=== PATIENT | male | born 1935 | race Two or more races ===

== ENCOUNTER 2019-08-11 22:51 | Inpatient (IN) | payer MEDICARE, OTHER ==
[~2019-08-11] VITALS: Ht 165.1 cm; Wt 52.6 kg
[2019-08-11] MEDS ORDERED: IV NORMAL SALINE 500 ML BAG IV ONE (23:00)
--- NOTE | 2019-08-11 23:00 | NUR ---
Called to ED. Rec'd pt while being bagged by paramedics and subsequently placed on Calvo settings AC 12, VT 500, PEEP +5 and FIO2-100%. Portex 7 is patent and secure. Pt will continue to be monitored. Pt is in no resp. distress at this time. Calvo alarm parameters have been checked and remain audible. Addendum: 08/11/19 at 2348 by MARKY PAGE RT FIO2 to be titrated to 40%
--- NOTE | 2019-08-11 23:04 | NUR ---
PT CAME IN BIB R90 VIA [facility] PT IS NONRESPONSIVE, AMBU BAG ON TRACHE W/ VENT SETTINGS PER EMT, REPORTS INCREASING LETHARGY AND UNRESPONSIVENESS X1DAY PT FULL CODE, +TRACHEOSTOMY INTACTT,+GTUBE INTACT(L MID ABD),+DRESSING ON L CHEST (DIALYSIS) NO VISUAL TRACKING,NOT RESPONSIVE TO PAIN NOR TOUCH, +PULSES ON WRIST, +CAROTID PULSE EQUAL RISE AND FALL OF CHEST 102F RECTAL, UNABLE TO OBTAIN URINE, UPON INSERTION OF FR 16 INDWELLING PATEL CATH, WHICH PRODUCED VERY THICK BROWN ASPIRATE UNDER 2ML MD AT BEDSIDE FOR HX AND PHYSICAL
[2019-08-11 23:05] LABS: BASOPHILS % (AUTO) 0.2 % (0.0-2.0); EOSINOPHILS # (AUTO) 0.2 K/uL (0.0-0.7); EOSINOPHILS % (AUTO) 1.6 % (0.0-7.0); HEMATOCRIT 33.8 % (36.7-47.1); HEMOGLOBIN 10.9 g/dL (12.5-16.3); LYMPHOCYTES # (AUTO) 2.9 K/uL (20.0-40.0); LYMPHOCYTES % (AUTO) 22.5 % (20.5-51.5); MEAN CORPUSCULAR HEMOGLOBIN 31.1 uug (23.8-33.4); MEAN CORPUSCULAR HGB CONC 32 g/dL (32.5-36.3); MEAN CORPUSCULAR VOLUME 96.2 fL (73.0-96.2); NEUTROPHILS # (AUTO) 8.6 K/uL (1.8-8.9); NEUTROPHILS % (AUTO) 67.7 % (38.5-71.5); PLATELET COUNT (AUTO) 133 K/uL (152-348); RED BLOOD CELL COUNT(AUTO) 3.51 MIL/uL (4.06-5.63); WHITE BLOOD COUNT (AUTO) 12.7 K/uL (3.6-10.2)
[2019-08-11] MEDS ORDERED: ACETAMINOPHEN 650 MG SUPP.RECT RC ONE ×2 (23:15→23:18)
[2019-08-11 23:27] LABS: CARBON DIOXIDE 22 mmol/L (21-32); CHLORIDE 102 mmol/L (98-107); CREATININE 3.5 mg/dL (0.6-1.3); GLUCOSE 187 mg/dL (74-106); UREA NITROGEN, BLOOD 64 mg/dL (7-18)
[2019-08-11] MEDS ORDERED: PIPERACILLIN/TAZOBACTAM/D5W 50 ML IV ONE (23:28)
[2019-08-11 23:29] LABS: POTASSIUM 2.4 mmol/L (3.5-5.1)
[2019-08-11] MEDS ORDERED: VANCOMYCIN IV 1,000 MG in IV DEXTROSE 5% 250 ML IV ONE (23:30)
[2019-08-11] MEDS ORDERED: POTASSIUM CHLORIDE 20 MEQ TAB.PRT.SR PO ONE (23:30)
[2019-08-11] MEDS ORDERED: PIPERACILLIN SODIUM/TAZOBACTAM 3.375 G in IV DEXTROSE 5% 50 ML IV ONE (23:30)
--- NOTE | 2019-08-11 23:30 | NUR ---
CRITICAL LAB: POTASSIUM AT 2.4 PER [facility](LAB) ERMD AWARE
[2019-08-11] MEDS ORDERED: POTASSIUM CHLORIDE 20 MEQ TAB.PRT.SR ONE (23:34)
[2019-08-11 23:39] LABS: ALANINE AMINOTRANSFERASE 44 U/L (16-63); ALKALINE PHOSPHATASE 423 U/L (50-136); ASPARTATE AMINOTRANSFERASE 19 U/L (15-37); BILIRUBIN,DIRECT 0.4 mg/dL (0.0-0.2); BILIRUBIN,TOTAL 0.8 mg/dL (0.2-1.0); TOTAL PROTEIN, SERUM 7.6 g/dL (6.4-8.2)
[2019-08-11] MEDS ORDERED: VANCOMYCIN IV 200 ML ONE (23:48)
[2019-08-11] MEDS ORDERED: ONDA4TAB10 GT (23:53)
[2019-08-11] MEDS ORDERED: SENN-168 GT (23:53)
[2019-08-11] MEDS ORDERED: ferrous sulfate GT (23:53)
[2019-08-11] MEDS ORDERED: FAMO20TA8 GT (23:53)
[2019-08-11] MEDS ORDERED: LACT1CAP57 GT (23:53)
[2019-08-11] MEDS ORDERED: AMLO5TAB9 GT (23:53)
[2019-08-11] MEDS ORDERED: PROT946L GT (23:53)
[2019-08-11] MEDS ORDERED: INSU100V11 SUBCUT (23:53)
[2019-08-11] MEDS ORDERED: ASCO250T5 GT (23:53)
[2019-08-11] MEDS ORDERED: LEVE500S9 GT (23:53)
[2019-08-11] MEDS ORDERED: ACET160S GT (23:53)
[2019-08-11] MEDS ORDERED: PROMETHAZINE CODEINE GT (23:53)
[2019-08-11] MEDS ORDERED: CARV25TA2 GT (23:53)
[2019-08-11] MEDS ORDERED: IPRA3AMP22 IH ×2 (23:53)
[2019-08-11] MEDS ORDERED: CHLO473M3 PO (23:53)
[2019-08-11] MEDS ORDERED: HEPA500034 SUBCUT (23:53)
[2019-08-11] MEDS ORDERED: VIT1TABL46 GT (23:53)
--- NOTE | 2019-08-11 23:58 | NUR ---
PT SCRATCHED RIGHT EAR PT ABLE TO OPEN EYES UPON COMMAND AND BLINK
[2019-08-12] VITALS (88 sets, daily range): BP systolic 67–135; BP diastolic 29–63
--- NOTE | 2019-08-12 00:05 | NUR ---
DR LORD ON THE PHONE W/ DR HARE DX ACUTE FEBRILE ILLNESS HYPOKALEMIA RENAL FAILURE [facility]ALTH[facility] ACQUIRED PNEUMONIA ICU BED 1
--- NOTE | 2019-08-12 00:12 | NUR ---
HAND OFF AND SBAR GIVEN TO MS. POLLARD PT WILL BE ADMITTED TO ICU BD 1
--- NOTE | 2019-08-12 00:14 | NUR ---
pt transported to ICU BED 1 ACC BY CASH CONTROL SPECIALIST ACC BY RT UNDER DR LORD DX: ACUTE FEBRILE ILLNES [facility] ACQUIRED PNEUMONIA RENAL FAILURE PT NAD, +G18 L AC INTACT INFUSING WELL TO COMPLETE ABX AT ICU +G16 TO R AC INTACT SALINE LOCK TEMP AT 101.5F
--- NOTE | 2019-08-12 00:40 | NUR ---
Admitted an 83 y.o male patient from ER via raquel DX: sepsis, PNA. To CCU1; obtunded, withdraws to pain, doesn't open eyes or track. Assessment done; see admission data for details. Addendum: 08/12/19 at 0431 by LATRICE PIZARRO RN Amended: Links added. Addendum: 08/12/19 at 0433 by LATRICE PIZAROR RN Amended: Links added. Addendum: 08/12/19 at 0500 by LATRICE PIZARRO RN Amended: Links added. Addendum: 08/12/19 at 0502 by LATRICE PIZARRO RN Amended: Links added. Addendum: 08/12/19 at 0502 by LATRICE PIZAROR RN Amended: Links added. Addendum: 08/12/19 at 0502 by LATRICE PIZARRO RN Amended: Links added. Addendum: 08/12/19 at 0503 by LATRICE PIZARRO RN Amended: Links added. Addendum: 08/12/19 at 0505 by LATRICE PIZARRO RN Amended: Links added. Addendum: 08/12/19 at 0508 by LATRICE PIZARRO RN Amended: Links added. Addendum: 08/12/19 at 0509 by LATRICE PIZARRO RN Amended: Links added. Addendum: 08/12/19 at 0509 by LATRICE PIZARRO RN Amended: Links added. Addendum: 08/12/19 at 0511 by LATRICE PIZARRO RN Amended: Links added.
--- NOTE | 2019-08-12 01:00 | NUR ---
Spoke to Dr. Rehana jones: patient's admission and BP. Orders received. Addendum: 08/12/19 at 0433 by LATRICE PIZARRO RN Amended: Links added. Addendum: 08/12/19 at 0500 by LATRICE PIZARRO RN Amended: Links added. Addendum: 08/12/19 at 0502 by LATRICE PIZARRO RN Amended: Links added. Addendum: 08/12/19 at 0502 by LATRICE PIZARRO RN Amended: Links added. Addendum: 08/12/19 at 0502 by LATRICE PIZARRO RN Amended: Links added. Addendum: 08/12/19 at 0503 by LATRICE PIZARRO RN Amended: Links added. Addendum: 08/12/19 at 0505 by LATRICE PIZARRO RN Amended: Links added. Addendum: 08/12/19 at 0508 by LATRICE PIZARRO RN Amended: Links added. Addendum: 08/12/19 at 0509 by LATRICE PIZARRO RN Amended: Links added. Addendum: 08/12/19 at 0509 by LATRICE PIZARRO RN Amended: Links added. Addendum: 08/12/19 at 0511 by LATRICE PIZARRO RN Amended: Links added.
[2019-08-12] MEDS ORDERED: IV NORMAL SALINE 500 ML IV ONE (01:15)
[2019-08-12] MEDS ORDERED: NOREPINEPHRINE BITARTRATE 4 MG/4 ML VIAL IV ONE (01:29)
--- NOTE | 2019-08-12 01:40 | NUR ---
ABJohnny drawn. Patient's son Destin in. Visiting hours and routine CCU care discussed; verbalized understanding. Addendum: 08/12/19 at 0500 by LATRICE PIZARRO RN Amended: Links added. Addendum: 08/12/19 at 0502 by LATRICE IPZARRO RN Amended: Links added. Addendum: 08/12/19 at 0502 by LATRICE PIZARRO RN Amended: Links added. Addendum: 08/12/19 at 0502 by LATRICE PIZARRO RN Amended: Links added. Addendum: 08/12/19 at 0503 by LATRICE PIZARRO RN Amended: Links added. Addendum: 08/12/19 at 0505 by LATRICE PIZARRO RN Amended: Links added. Addendum: 08/12/19 at 0508 by LATRICE PIZARRO RN Amended: Links added. Addendum: 08/12/19 at 0509 by LATRICE PIZARRO RN Amended: Links added. Addendum: 08/12/19 at 0509 by LATRICE PIZARRO RN Amended: Vidhya added. Addendum: 08/12/19 at 0511 by LATRICE PIZARRO RN Amended: Vidhya added.
[2019-08-12 01:42] LABS: ABG BASE EXCESS -6.9 mmol/L; ABG HCO3 18.5 mmol/L; ABG PCO2 36.7 mmHg (35.0-45.0); ABG PO2 169.8 mmHg (75.0-100.0); ABG SITE LEFT BRACHIAL; ABG TOTAL HEMOGLOBIN 9.7 G/dL (13.5-18.0); COHb 0.8 % (0.5-1.5); MetHb 0.2 % (0.0-1.5); O2Hb 98.3 % (94.0-97.0); VENT MODE VENT - A/C; VT, ABG 500 mL
[2019-08-12] MEDS: NOREPINEPHRINE BITARTRATE 8 MG in IV DEXTROSE 5% 500 ML IV PRN (01:50)
[2019-08-12] MEDS ORDERED: MAGNESIUM HYDROXIDE 30 ML LIQUID UDC PO PRN (02:00)
[2019-08-12] MEDS ORDERED: HYDROCODONE/APAP 5-325MG TABLET PO PRN (02:00)
[2019-08-12] MEDS ORDERED: ONDANSETRON 4 MG/2 ML VIAL IV PRN (02:00)
[2019-08-12] MEDS ORDERED: Z GUARD REMEDY PASTE 57 GM TUBE TOP PRN (02:00)
--- NOTE | 2019-08-12 02:00 | NUR ---
Results of ABGS called to Dr. Kimball. Informed of L heel/foot that is necrotic and patient's condition. Orders received. Addendum: 08/12/19 at 0502 by LATRICE PIZARRO RN Amended: Links added. Addendum: 08/12/19 at 0502 by LATRICE PIZARRO RN Amended: Links added. Addendum: 08/12/19 at 0502 by LATRICE PIZARRO RN Amended: Links added. Addendum: 08/12/19 at 0503 by LATRICE PIZARRO RN Amended: Links added. Addendum: 08/12/19 at 0505 by LATRICE PIZARRO RN Amended: Links added. Addendum: 08/12/19 at 0508 by LATRICE PIZARRO RN Amended: Links added. Addendum: 08/12/19 at 0509 by LATRICE PIZARRO RN Amended: Links added. Addendum: 08/12/19 at 0509 by LATRICE PIZARRO RN Amended: Links added. Addendum: 08/12/19 at 0511 by LATRICE PIZARRO RN Amended: Links added.
[2019-08-12] MEDS: POTASSIUM CHLORIDE 50 ML IV SCH ×4 (02:32→05:27)
[2019-08-12] MEDS ORDERED: PIPERACILLIN/TAZOBACTAM/D5W 50 ML ONE (05:37)
[2019-08-12] MEDS: PIPERACILLIN/TAZO 2.25 G in IV DEXTROSE 5% 50 ML IV SCH ×3 (05:46→21:12)
[2019-08-12] MEDS ORDERED: VANCOMYCIN IV 1,250 MG in IV DEXTROSE 5% 250 ML IV SCH (09:00)
--- NOTE | 2019-08-12 09:00 | NUR ---
Pt has a trache Portex 7, connected to ventilator with a setting of AC 12, FIO2-40%, VT-500, Peep-5, satting 98-100%. Lungs has scattered rhonvhis, suction moderate amount of whitish secretions.
[2019-08-12 09:02] LABS: BASOPHILS % (AUTO) 0.3 % (0.0-2.0); EOSINOPHILS # (AUTO) 0.3 K/uL (0.0-0.7); EOSINOPHILS % (AUTO) 1.9 % (0.0-7.0); HEMATOCRIT 31.9 % (36.7-47.1); HEMOGLOBIN 10.2 g/dL (12.5-16.3); LYMPHOCYTES % (AUTO) 11.8 % (20.5-51.5); MEAN CORPUSCULAR HEMOGLOBIN 31.1 uug (23.8-33.4); MEAN CORPUSCULAR HGB CONC 32 g/dL (32.5-36.3); MEAN CORPUSCULAR VOLUME 96.9 fL (73.0-96.2); MONOCYTES % (AUTO) 5.9 % (0.0-11.0); NEUTROPHILS # (AUTO) 13.5 K/uL (1.8-8.9); NEUTROPHILS % (AUTO) 80.1 % (38.5-71.5); PLATELET COUNT (AUTO) 139 K/uL (152-348); RED BLOOD CELL COUNT(AUTO) 3.29 MIL/uL (4.06-5.63); WHITE BLOOD COUNT (AUTO) 16.8 K/uL (3.6-10.2)
[2019-08-12 09:07] LABS: CARBON DIOXIDE 19 mmol/L (21-32); CHLORIDE 102 mmol/L (98-107); CREATININE 3.6 mg/dL (0.6-1.3); GLUCOSE 230 mg/dL (74-106); MAGNESIUM 2.3 mg/dL (1.8-2.4); PHOSPHOROUS 2.8 mg/dL (2.5-4.9); UREA NITROGEN, BLOOD 69 mg/dL (7-18)
[2019-08-12] MEDS ORDERED: DEXTROSE 50% 50 ML DISP.SYRIN IV PRN (09:15)
--- NOTE | 2019-08-12 09:52 | NUR ---
Clinical Pharmacy Note: Vancomycin Dosing per Pharmacy Subjective: Vancomycin IV to start on this 83 yo male on HD for PNA (HCAP) Objective: BUN 69/Scr 3.6 WBC16.8 Temperature 98.6 ht 165 cm wt 51 kg Assessment/Plan: Patient received vancomycin 1000mg IVPB x1 on 08/11 at 2300.No HD harman been scheduled for today, therefore, no dose is due today, as per vanco dosing for HD patient protocol. Plan to order vancomycin random level before next HD (not yet ordered). Will continue to dose per pre-HD vancomycin level. Will follow.
[2019-08-12] MEDS: PANTOPRAZOLE SODIUM 40 MG VIAL IV SCH (09:55)
[2019-08-12] MEDS: HEPARIN SODIUM,PORCINE 5,000 UNITS/ML VIAL SQ SCH ×2 (09:56→20:41)
[2019-08-12] MEDS: Z GUARD REMEDY PASTE 57 GM TUBE TOP SCH ×2 (09:58→20:40)
--- NOTE | 2019-08-12 10:00 | NUR ---
Seen and examined by Dr Berger with new orders. Seen by Dr Lacey with new orders. Pt is a turnbase. Levophed infusing at 2mctg/min for low BP.
--- NOTE | 2019-08-12 10:30 | NUR ---
Venous doppler done at the bedside, poor result. Compression sock not recommended for now.
--- NOTE | 2019-08-12 10:45 | NUR ---
Seen and examined by Carina Gentile Pt is possibly dialyse tomorrow 08/13.
--- NOTE | 2019-08-12 11:20 | NUR ---
WOUND CARE CONSULT: PT FOLLOWED BY PLASTIC SURGERY AND PODIATRY TEAMS FOR WOUNDS. DEFER TO SURGICAL TEAMS FOR WOUND TREATMENT PLAN. DISCUSSED SKIN PROTECTION WITH NURSING STAFF. FIRST STEP LOW AIRLOSS MATTRESS ON ORDER. WILL SEE PRN.
[2019-08-12] MEDS: PROTEIN SUPPLEMENT (PROSTAT) 30 ML LIQUID GT SCH ×2 (12:00→17:57)
[2019-08-12] MEDS: INSULIN REGULAR, HUMAN 300 UNIT/3 ML VIAL SQ PRN ×2 (12:25→18:06)
[2019-08-12] MEDS: BLOOD SUGAR DIAGNOSTIC 1 EACH STRIP VI SCH ×2 (12:27→17:58)
[2019-08-12] MEDS ORDERED: Medication Not On Formulary EA (Protein Supplement (Promod) 30 ML) GT SCH (13:00)
--- NOTE | 2019-08-12 15:00 | NUR ---
Pt is seen by senior telecommunications technician and surgery, no orders.
[2019-08-12] MEDS: LEVETIRACETAM 500 MG/5 ML LIQUID UDC GT SCH ×2 (15:32→21:07)
--- NOTE | 2019-08-12 16:00 | NUR ---
Sputum collected and sent to lab for culture as ordered.
[2019-08-12] MEDS ORDERED: Medication Not On Formulary EA (Levetiracetam 500 MG) GT SCH (17:00)
--- NOTE | 2019-08-12 17:00 | NUR ---
Dressing done on both feet as ordered. Elevated both feet on pillows.
--- NOTE | 2019-08-12 17:45 | NUR ---
Recieved pt lying in bed, Hob up 35degrees. Obtunded, resdponsive only to deep stimuli. All extremities are flaccid. Temp 99.1F
[2019-08-12] MEDS: CHLORHEXIDINE GLUCONATE 15 ML MOUTHWASH MM SCH (17:56)
[2019-08-12] MEDS: CULTURELLE CAPSULE GT SCH (17:56)
[2019-08-12] MEDS ORDERED: LEVETIRACETAM 500 MG/5 ML LIQUID UDC GT SCH (21:00)
[2019-08-12] MEDS ORDERED: LEVETIRACETAM 250 MG TABLET ONE (21:01)
[2019-08-12] MEDS ORDERED: DILTIAZEM HCL IV 125 MG in IV NORMAL SALINE 100 ML IV PRN (23:45)
[2019-08-13] VITALS (80 sets, daily range): BP systolic 74–139; BP diastolic 37–64
[2019-08-13] MEDS: BLOOD SUGAR DIAGNOSTIC 1 EACH STRIP VI SCH ×4 (00:39→18:21)
[2019-08-13] MEDS: INSULIN REGULAR, HUMAN 300 UNIT/3 ML VIAL SQ PRN ×3 (00:41→18:24)
[2019-08-13 03:15] LABS: HEPATITIS B SURFACE AB Non Reactive (.); HEPATITIS B SURFACE AG Negative (Negative)
[2019-08-13 05:11] LABS: BASOPHILS % (AUTO) 0.3 % (0.0-2.0); EOSINOPHILS # (AUTO) 0.7 K/uL (0.0-0.7); EOSINOPHILS % (AUTO) 4.9 % (0.0-7.0); HEMATOCRIT 32.6 % (36.7-47.1); HEMOGLOBIN 10.5 g/dL (12.5-16.3); LYMPHOCYTES # (AUTO) 1.7 K/uL (20.0-40.0); LYMPHOCYTES % (AUTO) 12.1 % (20.5-51.5); MEAN CORPUSCULAR HEMOGLOBIN 30.5 uug (23.8-33.4); MEAN CORPUSCULAR HGB CONC 32 g/dL (32.5-36.3); MEAN CORPUSCULAR VOLUME 95.1 fL (73.0-96.2); MONOCYTES # (AUTO) 0.7 K/uL (2.0-10.0); NEUTROPHILS # (AUTO) 10.6 K/uL (1.8-8.9); NEUTROPHILS % (AUTO) 77.7 % (38.5-71.5); PLATELET COUNT (AUTO) 167 K/uL (152-348); RED BLOOD CELL COUNT(AUTO) 3.43 MIL/uL (4.06-5.63); WHITE BLOOD COUNT (AUTO) 13.7 K/uL (3.6-10.2)
[2019-08-13 05:28] LABS: CARBON DIOXIDE 19 mmol/L (21-32); CHLORIDE 103 mmol/L (98-107); CHOLESTEROL 66 mg/dL (<200); CREATININE 4.4 mg/dL (0.6-1.3); GLUCOSE 172 mg/dL (74-106); HDL CHOLESTEROL 19 mg/dL (40-60); MAGNESIUM 2.2 mg/dL (1.8-2.4); PHOSPHOROUS 3.9 mg/dL (2.5-4.9); TRIGLYCERIDES 114 MG/DL (30-150)
[2019-08-13 05:34] LABS: UREA NITROGEN, BLOOD 83 mg/dL (7-18)
[2019-08-13] MEDS: PIPERACILLIN/TAZO 2.25 G in IV DEXTROSE 5% 50 ML IV SCH ×2 (05:55→15:52)
[2019-08-13] MEDS: NOREPINEPHRINE BITARTRATE 8 MG in IV DEXTROSE 5% 500 ML IV PRN ×2 (07:11→15:51)
[2019-08-13 08:18] LABS: ABG BASE EXCESS -10.3 mmol/L; ABG HCO3 15.5 mmol/L; ABG PCO2 34.6 mmHg (35.0-45.0); ABG PO2 438.1 mmHg (75.0-100.0); ABG SITE LEFT RADIAL; ABG TOTAL HEMOGLOBIN 14.3 G/dL (13.5-18.0); COHb 1.6 % (0.5-1.5); MetHb 0.1 % (0.0-1.5); O2Hb 98.3 % (94.0-97.0); VENT MODE VENT - A/C; VT, ABG 500 mL
[2019-08-13] MEDS ORDERED: FAMOTIDINE 20 MG TABLET GT SCH (09:00)
[2019-08-13] MEDS ORDERED: Medication Not On Formulary EA (Vit B Cmplx 3/Fa/Vit C/Biotin (Rena-Vite Rx Tablet) 1 EA GT SCH (09:00)
[2019-08-13] MEDS: CULTURELLE CAPSULE GT SCH ×2 (10:26→17:00)
[2019-08-13] MEDS: FERROUS SULFATE 300 MG/5 ML LIQUID UDC GT SCH (10:27)
[2019-08-13] MEDS: PANTOPRAZOLE SODIUM 40 MG VIAL IV SCH (10:27)
[2019-08-13] MEDS: ASCORBIC ACID 250 MG TABLET GT SCH (10:27)
[2019-08-13] MEDS: CHLORHEXIDINE GLUCONATE 15 ML MOUTHWASH MM SCH ×2 (10:27→18:20)
[2019-08-13] MEDS: FOLIC ACID/VITAMIN B COMP W-C TABLET GT SCH (10:27)
[2019-08-13] MEDS: PROTEIN SUPPLEMENT (PROSTAT) 30 ML LIQUID GT SCH ×3 (10:30→17:00)
[2019-08-13] MEDS: Z GUARD REMEDY PASTE 57 GM TUBE TOP SCH ×2 (10:30→20:49)
[2019-08-13] MEDS: LEVETIRACETAM 500 MG/5 ML LIQUID UDC GT SCH ×2 (10:37→20:48)
[2019-08-13] MEDS: HEPARIN SODIUM,PORCINE 5,000 UNITS/ML VIAL SQ SCH ×2 (10:42→20:50)
--- NOTE | 2019-08-13 12:00 | NUR ---
Pt family at bedside,updated on plan of care.
[2019-08-13] MEDS ORDERED: VANCOMYCIN IV 1,000 MG in IV DEXTROSE 5% 250 ML IV ONE ×2 (12:15→16:45)
--- NOTE | 2019-08-13 12:47 | NUR ---
Clinical Pharmacy Note: Vancomycin Dosing per Pharmacy Subjective: Vancomycin IV to continue on this 83 yo male on HD for PNA (HCAP) Objective: BUN 83/Scr 4.4 WBC13.7 Temperature 99.8 ht 165 cm wt 51 kg Pre-HD level today with am labs: 11.6 Assessment/Plan: Patient received vancomycin 1000mg IVPB x1 on 08/11 at 2300.HD scheduled for today. Per pre-HD level, will dose another 1gm vanco today after dialysis. RN to call Rx when dialysis occurs so dose can be given afterwards. Brendan continue dosing per HD protocol. Will follow
--- NOTE | 2019-08-13 17:00 | NUR ---
Pt was seen by HERMANN Wolff.Updated on pt positive for MRSA in nares,john.Pt was placed on contact isolation.
[2019-08-13] MEDS ORDERED: MEROPENEM 500 MG in IV NORMAL SALINE 50 ML IV SCH (17:45)
--- NOTE | 2019-08-13 17:55 | NUR ---
RECEIVED PATIENT TRACHED ON A SAHNI VENT. PATIENT IS ON THE SETTINGS THAT ARE CHARTED ON THE MECHANICAL VENT NOTES. AMBU BAG IS BY BEDSIDE. VENT ALARMS ARE ON AND AUDIBLE. VENT IS PLUGGED IN THE RED OUTLET. NO SOB NOTED AT THIS TIME.
[2019-08-13] MEDS ORDERED: MEROPENEM 0.5 G in IV NORMAL SALINE 50 ML IV SCH (18:45)
[2019-08-13] MEDS: MEROPENEM 0.5 G in IV NORMAL SALINE 50 ML IV SCH (18:50)
[2019-08-13] MEDS: METRONIDAZOLE 500 MG/NS 100ML 500 MG in PREMIXED 1 EACH IV SCH (21:05)
[2019-08-14] VITALS (24 sets, daily range): BP systolic 91–165; BP diastolic 41–71
[2019-08-14] MEDS: BLOOD SUGAR DIAGNOSTIC 1 EACH STRIP VI SCH ×4 (00:07→17:15)
[2019-08-14] MEDS: INSULIN REGULAR, HUMAN 300 UNIT/3 ML VIAL SQ PRN ×3 (00:10→17:16)
--- NOTE | 2019-08-14 00:50 | NUR ---
PT ON CONT VLEA VENT WITH PORTEX # [address] AND SECURED, WITH SAME CURRENT VENT SETTINGS, A/C 14, VT 500ML, 35%, PEEP5, PT DOES ASSIST AT TIMES, CHECK CUFF, CHANGE HME, TRACH CARE DONE, SUCTIONED LIGHT PALE YELL TINGE SECRETIONS, PT SEMI AWAKE, NO VENT CHANGES MADE, ALL VENT Alarms good, pt stable, ambu bag at bedside. Kaylynn OWUSUP Addendum: 08/14/19 at 0053 by MOIRA JOYNER RT Amended: Links added.
[2019-08-14 05:23] LABS: CARBON DIOXIDE 26 mmol/L (21-32); CHLORIDE 103 mmol/L (98-107); CREATININE 3.3 mg/dL (0.6-1.3); GLUCOSE 115 mg/dL (74-106); MAGNESIUM 1.9 mg/dL (1.8-2.4); PHOSPHOROUS 2.9 mg/dL (2.5-4.9); POTASSIUM 3.1 mmol/L (3.5-5.1); UREA NITROGEN, BLOOD 50 mg/dL (7-18)
[2019-08-14 05:26] LABS: BASOPHILS % (AUTO) 0.2 % (0.0-2.0); EOSINOPHILS # (AUTO) 0.6 K/uL (0.0-0.7); EOSINOPHILS % (AUTO) 5.2 % (0.0-7.0); HEMATOCRIT 31.9 % (36.7-47.1); HEMOGLOBIN 10.7 g/dL (12.5-16.3); LYMPHOCYTES # (AUTO) 0.8 K/uL (20.0-40.0); LYMPHOCYTES % (AUTO) 6.7 % (20.5-51.5); MEAN CORPUSCULAR HEMOGLOBIN 31.3 uug (23.8-33.4); MEAN CORPUSCULAR HGB CONC 34 g/dL (32.5-36.3); MEAN CORPUSCULAR VOLUME 93.1 fL (73.0-96.2); MONOCYTES # (AUTO) 0.6 K/uL (2.0-10.0); MONOCYTES % (AUTO) 5.4 % (0.0-11.0); NEUTROPHILS # (AUTO) 9.5 K/uL (1.8-8.9); NEUTROPHILS % (AUTO) 82.5 % (38.5-71.5); RED BLOOD CELL COUNT(AUTO) 3.42 MIL/uL (4.06-5.63); WHITE BLOOD COUNT (AUTO) 11.5 K/uL (3.6-10.2)
[2019-08-14 05:35] LABS: PLATELET COUNT (AUTO) 160 K/uL (152-348)
[2019-08-14] MEDS: METRONIDAZOLE 500 MG/NS 100ML 500 MG in PREMIXED 1 EACH IV SCH ×3 (06:01→22:03)
[2019-08-14] MEDS: PROTEIN SUPPLEMENT (PROSTAT) 30 ML LIQUID GT SCH ×3 (08:07→16:58)
[2019-08-14] MEDS: CULTURELLE CAPSULE GT SCH ×2 (08:07→17:00)
[2019-08-14] MEDS: HEPARIN SODIUM,PORCINE 5,000 UNITS/ML VIAL SQ SCH ×2 (08:08→20:20)
[2019-08-14] MEDS: FERROUS SULFATE 300 MG/5 ML LIQUID UDC GT SCH (08:08)
[2019-08-14] MEDS: ASCORBIC ACID 250 MG TABLET GT SCH (08:09)
[2019-08-14] MEDS: PANTOPRAZOLE SODIUM 40 MG VIAL IV SCH (08:09)
[2019-08-14] MEDS: Z GUARD REMEDY PASTE 57 GM TUBE TOP SCH ×2 (08:09→20:16)
[2019-08-14] MEDS: CHLORHEXIDINE GLUCONATE 15 ML MOUTHWASH MM SCH ×2 (08:09→16:58)
[2019-08-14] MEDS: LEVETIRACETAM 500 MG/5 ML LIQUID UDC GT SCH ×2 (08:10→20:16)
[2019-08-14] MEDS: FOLIC ACID/VITAMIN B COMP W-C TABLET GT SCH (08:10)
[2019-08-14 08:35] LABS: ABG BASE EXCESS -3.3 mmol/L; ABG HCO3 20.6 mmol/L; ABG PCO2 32.8 mmHg (35.0-45.0); ABG PH 7.416 (7.350-7.450); ABG PO2 150.7 mmHg (75.0-100.0); ABG SITE LEFT RADIAL; ABG TOTAL HEMOGLOBIN 10.6 G/dL (13.5-18.0); MetHb 0.2 % (0.0-1.5); O2Hb 98.1 % (94.0-97.0); VENT MODE VENT - A/C; VT, ABG 500 mL
--- NOTE | 2019-08-14 08:40 | NUR ---
Pt.was seen by DO: Jane Lacey, updated with pt.condition and NPO status.
--- NOTE | 2019-08-14 09:10 | NUR ---
Pt.was seen by with new orders.
[2019-08-14] MEDS ORDERED: POTASSIUM CHLORIDE 10 MEQ TAB.PRT.SR PO ONE (09:30)
[2019-08-14] MEDS: MUPIROCIN 2% OINT 22 GM TUBE NS SCH ×2 (09:38→20:17)
--- NOTE | 2019-08-14 09:40 | NUR ---
Pt.was seen by
[2019-08-14] MEDS ORDERED: POTASSIUM CHLORIDE 20 MEQ POWDER PACKET PO ONE (09:45)
--- NOTE | 2019-08-14 10:31 | NUR ---
F/U WITH MED RESPONSE FOR BOAT CLEANING SUPERVISOR TIME,WAS NOT ARRANGE,PT. WAS SCHEDULED FOR BOAT CLEANING SUPERVISOR AT 1130 BY ACLS TRANSP. Addendum: 08/14/19 at 1033 by TAMRA MORALES RN #[id number]
--- NOTE | 2019-08-14 10:36 | NUR ---
Family at bedside,updated with pt.condition and plan of care.
--- NOTE | 2019-08-14 10:37 | NUR ---
Clinical Pharmacy Note: Vancomycin Dosing per Pharmacy Subjective: Vancomycin IV to continue on this 83 yo male on HD for PNA (HCAP) Objective: BUN 50/Scr 3.3 WBC 11.5 Temperature 97.8 ht 165 cm wt 51 kg Assessment/Plan: Patient received vancomycin 1000mg IVPB x1 on 08/13 post-dialysis. No HD scheduled for today therefore no dose will be given. Will continue to follow HD schedule and dose per pre-HD levels on HD days per protocol. Will follow
--- NOTE | 2019-08-14 11:40 | NUR ---
Pt.was seen by SURY SANCHEZ MD.
[2019-08-14] MEDS: NEPRO 1000 ML GT PRN (12:32)
--- NOTE | 2019-08-14 14:37 | NUR ---
RECEIVED STABLE ON CURRENT VENT SETTINGS. ORAL CARE GIVEN. 8AM ABG DONE WITH RESULT GIVEN TO DOLLY Rowland RN. TITRATED FIO2 DOWN TO 30 %. NO NEW ORDER RECEIVED FROM DR. LITTLEJOHN.
[2019-08-14] MEDS: VANCOMYCIN FOR PO/GT/NG USE GT SCH (17:00)
[2019-08-14] MEDS: MEROPENEM 0.5 G in IV NORMAL SALINE 50 ML IV SCH (17:18)
--- NOTE | 2019-08-14 18:51 | NUR ---
No changes in pt.condition, no s/s of distress.
--- NOTE | 2019-08-14 19:30 | NUR ---
Report received. Patient obtunded, with facial grimaces and withdrawal to pain, but doesn't open eyes. With trache to vent settings: VW=475 ml, FIO2=30%, PEEP=5, AC=12. Sat above 96%. On contact isolation for MRSA nares and stool C diff. GT feedings at 40 ml/H; tolerated. Assessment completed. Cleaned for small liquid brown BM. Turned and repositioned. HOB elevated at all times. Addendum: 08/14/19 at 2112 by LATRICE PIZARRO RN Amended: Links added. Addendum: 08/15/19 at 0105 by LATRICE PIZARRO RN vent settings: AC=14
[2019-08-15] VITALS (31 sets, daily range): BP systolic 93–185; BP diastolic 42–82
[2019-08-15] MEDS: BLOOD SUGAR DIAGNOSTIC 1 EACH STRIP VI SCH ×5 (00:16→23:52)
[2019-08-15] MEDS: VANCOMYCIN FOR PO/GT/NG USE GT SCH ×5 (00:16→23:52)
[2019-08-15] MEDS: INSULIN REGULAR, HUMAN 300 UNIT/3 ML VIAL SQ PRN ×5 (00:18→23:53)
--- NOTE | 2019-08-15 00:30 | NUR ---
Cleaned for another liquid brown BM. Skin care provided. Addendum: 08/15/19 at 0107 by LATRICE PIZARRO RN Amended: Links added. Addendum: 08/15/19 at 106 by LATRICE PIZARRO RN Amended: Links added. Addendum: 08/15/19 at 010 by LATRICE PIZARRO RN Amended: Links added. Addendum: 08/15/19 at 0108 by LATRICE PIZARRO RN Amended: Links added. Addendum: 08/15/19 at 0108 by LATRICE PIZARRO RN Amended: Links added. Addendum: 08/15/19 at 0108 by LATRICE PIZARRO RN Amended: Links added. Addendum: 08/15/19 at 0108 by LATRICE PIZARRO RN Amended: Links added. Addendum: 08/15/19 at 0108 by LATRICE PIZARRO RN Amended: Links added. Addendum: 08/15/19 at 0108 by LATRICE PIZARRO RN Amended: Links added. Addendum: 08/15/19 at 0109 by LATRICE PIZARRO RN Amended: Links added. Addendum: 08/15/19 at 0109 by LATRICE PIZARRO RN Amended: Links added.
--- NOTE | 2019-08-15 03:12 | NUR ---
PT ON CONT SAHNI VENT WITH PORTEX [address] AND SECURED, FIO2 @ 305, PT DOES ASSIST AT TIMES, GOOD COUGH EFFORT, SUCTIONED LIGHT PALE YELL TINGE SECRETIONS, NO VENT CHANGES MADE, TRACH CAREDONE, ALL VENT ALARMS GOOD, AMBU BAG AST BEDSIDE, CHANGE HMEAkin JOYNER COKE STILL CLEANER Addendum: 08/15/19 at 0314 by MOIRA JOYNER RT Amended: Links added.
[2019-08-15 05:27] LABS: BASOPHILS % (AUTO) 0.2 % (0.0-2.0); EOSINOPHILS # (AUTO) 0.5 K/uL (0.0-0.7); EOSINOPHILS % (AUTO) 4.2 % (0.0-7.0); HEMATOCRIT 32.2 % (36.7-47.1); HEMOGLOBIN 10.4 g/dL (12.5-16.3); LYMPHOCYTES # (AUTO) 1.5 K/uL (20.0-40.0); LYMPHOCYTES % (AUTO) 13.1 % (20.5-51.5); MEAN CORPUSCULAR HEMOGLOBIN 30.4 uug (23.8-33.4); MEAN CORPUSCULAR HGB CONC 32 g/dL (32.5-36.3); MEAN CORPUSCULAR VOLUME 94.1 fL (73.0-96.2); MONOCYTES # (AUTO) 0.7 K/uL (2.0-10.0); MONOCYTES % (AUTO) 5.7 % (0.0-11.0); NEUTROPHILS # (AUTO) 8.9 K/uL (1.8-8.9); NEUTROPHILS % (AUTO) 76.8 % (38.5-71.5); PLATELET COUNT (AUTO) 184 K/uL (152-348); RED BLOOD CELL COUNT(AUTO) 3.42 MIL/uL (4.06-5.63); WHITE BLOOD COUNT (AUTO) 11.6 K/uL (3.6-10.2)
[2019-08-15 05:36] LABS: CARBON DIOXIDE 24 mmol/L (21-32); CHLORIDE 104 mmol/L (98-107); GLUCOSE 245 mg/dL (74-106); MAGNESIUM 2.2 mg/dL (1.8-2.4); PHOSPHOROUS 2.8 mg/dL (2.5-4.9); UREA NITROGEN, BLOOD 71 mg/dL (7-18)
[2019-08-15 05:56] LABS: POTASSIUM 2.8 mmol/L (3.5-5.1)
--- NOTE | 2019-08-15 06:00 | NUR ---
Am care done. Patient opens eyes not tracking but appears more awake, moving arms purposefully. BPs 180's.
[2019-08-15] MEDS: METRONIDAZOLE 500 MG/NS 100ML 500 MG in PREMIXED 1 EACH IV SCH ×3 (06:03→22:04)
[2019-08-15] MEDS: IV NORMAL SALINE 250 ML IV PRN (06:07)
--- NOTE | 2019-08-15 06:40 | NUR ---
Spoke to Dr. Martinez re: low serum K and BPs in the 180's. Order received. As per MD BP will go down with dialysis.
[2019-08-15] MEDS ORDERED: POTASSIUM CHLORIDE 20 MEQ POWDER PACKET GT ONE (07:00)
[2019-08-15] MEDS ORDERED: MEROPENEM 0.5 G in IV NORMAL SALINE 50 ML IV PRN (07:19)
[2019-08-15] MEDS: PROTEIN SUPPLEMENT (PROSTAT) 30 ML LIQUID GT SCH ×3 (07:52→16:06)
[2019-08-15] MEDS: FERROUS SULFATE 300 MG/5 ML LIQUID UDC GT SCH (08:00)
[2019-08-15] MEDS: PANTOPRAZOLE SODIUM 40 MG VIAL IV SCH (08:00)
[2019-08-15] MEDS: CULTURELLE CAPSULE GT SCH ×2 (08:00→16:06)
[2019-08-15] MEDS: FOLIC ACID/VITAMIN B COMP W-C TABLET GT SCH (08:00)
[2019-08-15] MEDS: CHLORHEXIDINE GLUCONATE 15 ML MOUTHWASH MM SCH ×2 (08:03→16:06)
[2019-08-15] MEDS: LEVETIRACETAM 500 MG/5 ML LIQUID UDC GT SCH ×2 (08:03→20:31)
[2019-08-15] MEDS: ASCORBIC ACID 250 MG TABLET GT SCH (08:03)
[2019-08-15] MEDS: Z GUARD REMEDY PASTE 57 GM TUBE TOP SCH ×2 (08:06→20:31)
[2019-08-15] MEDS: MUPIROCIN 2% OINT 22 GM TUBE NS SCH ×2 (08:08→20:33)
[2019-08-15] MEDS: HEPARIN SODIUM,PORCINE 5,000 UNITS/ML VIAL SQ SCH ×2 (08:09→21:09)
--- NOTE | 2019-08-15 08:50 | NUR ---
Attending physician, Dr. Matty Lara in the unit to see and examine patient, full report given orders to continue with care plan received.
--- NOTE | 2019-08-15 08:51 | NUR ---
Hemodialysis in progress.
--- NOTE | 2019-08-15 09:30 | NUR ---
pulmonary services, Dr. Berger in the unit to see and examine patient, full report given Orders to continue with care plan received.
--- NOTE | 2019-08-15 10:02 | NUR ---
Clinical Pharmacy Note: Vancomycin Dosing per Pharmacy Subjective: Vancomycin IV to continue on this 83 yo male on HD for PNA (HCAP) Objective: BUN 71/Scr 4 WBC 11.5 Temperature 98.2 Vanco pre-HD level on 08/15: 19.5 ht 165 cm wt 51 kg Assessment/Plan: HD has been scheduled for today. Since pre-HD is between 15-20 mcg/ml, will give vanco 500mg IVPB x1 today post HD as per protocol. Will continue to follow HD schedule and dose per pre-HD levels on HD days per protocol. Will follow
[2019-08-15] MEDS: NOREPINEPHRINE BITARTRATE 8 MG in IV DEXTROSE 5% 500 ML IV PRN (10:24)
[2019-08-15] MEDS ORDERED: VANCOMYCIN IV 500 MG in IV DEXTROSE 5% 100 ML IV ONE (15:00)
--- NOTE | 2019-08-15 15:26 | NUR ---
As ordered by attending Dr. Matty Lara orders to consult with Library Serials Assistant. And at this time a call to Dr. Afshin Vazquez and spoke with him brief report given and informed of consultation. As stated "I'll see the patient thanks you for the consultation"
[2019-08-15] MEDS: MEROPENEM 0.5 G in IV NORMAL SALINE 50 ML IV SCH (17:51)
[2019-08-15] MEDS: NEPRO 1000 ML GT PRN (18:22)
--- NOTE | 2019-08-15 19:30 | NUR ---
Report received. Patient on contact isolation for stool c. diff and MRSA nares. With trache to vent on same settings: AC=14, FIO2=30%, WO=603ny and PEEP=5. Sat above 96%. Opens eyes and grimaces to pain, no tracking. Assessment completed. Addendum: 08/15/19 at 2215 by LATRICE PIZARRO RN Amended: Links added. Addendum: 08/15/19 at 2229 by LATRICE PIZARRO RN Amended: Links added. Addendum: 08/15/19 at 2229 by LATRICE PIZARRO RN Amended: Links added. Addendum: 08/15/19 at 2229 by LATRICE PIZARRO RN Amended: Links added. Addendum: 08/15/19 at 2230 by LATRICE PIZARRO RN Amended: Links added. Addendum: 08/15/19 at 0 by LATRICE PIZARRO RN Amended: Links added. Addendum: 08/15/19 at 2229 by LATRICE PIZARRO RN Amended: Links added. Addendum: 08/15/19 at 2230 by LATRICE PIZARRO RN Amended: Links added. Addendum: 08/15/19 at 2230 by LATRICE PIZARRO RN Amended: Links added. Addendum: 08/15/19 at 2230 by LATRICE PIZARRO RN Amended: Links added. Addendum: 08/15/19 at 2238 by LATRICE TAECHARATKIJ RN Amended: Links added. Addendum: 08/15/19 at 2236 by LATRICE PIZARRO RN Amended: Links added.
--- NOTE | 2019-08-15 21:00 | NUR ---
Seen by Flavio MCCRARY; no new order. Flavio spoke to patient's son over the phone. Addendum: 08/15/19 at 2228 by LATRICE PIZARRO RN Amended: Links added. Addendum: 08/15/19 at 2228 by LATRICE PIZARRO RN Amended: Links added. Addendum: 08/15/19 at 2228 by LATRICE PIZARRO RN Amended: Links added. Addendum: 08/15/19 at 2230 by LATRICE PIZARRO RN Amended: Links added. Addendum: 08/15/19 at 2230 by LATRICE PIZARRO RN Amended: Links added. Addendum: 08/15/19 at 2229 by LATRICE PIZARRO RN Amended: Links added. Addendum: 08/15/19 at 2229 by LATRICE PIZARRO RN Amended: Links added. Addendum: 08/15/19 at 2230 by LATRICE PIZARRO RN Amended: Links added. Addendum: 08/15/19 at 2231 by LATRICE PIZARRO RN Amended: Vidhya added. Addendum: 08/15/19 at 2238 by LATRICE PIZARRO RN Amended: Vidhya added. Addendum: 08/15/19 at 2239 by LATRICE PIZARRO RN Amended: Links added.
[2019-08-16] VITALS (25 sets, daily range): BP systolic 90–185; BP diastolic 43–81
[2019-08-16] MEDS: IV NORMAL SALINE 250 ML IV PRN (04:45)
[2019-08-16 05:18] LABS: BASOPHILS % (AUTO) 0.2 % (0.0-2.0); EOSINOPHILS # (AUTO) 0.3 K/uL (0.0-0.7); EOSINOPHILS % (AUTO) 3.3 % (0.0-7.0); HEMATOCRIT 30.9 % (36.7-47.1); HEMOGLOBIN 10.1 g/dL (12.5-16.3); LYMPHOCYTES # (AUTO) 1.7 K/uL (20.0-40.0); LYMPHOCYTES % (AUTO) 16.7 % (20.5-51.5); MEAN CORPUSCULAR HEMOGLOBIN 30.7 uug (23.8-33.4); MEAN CORPUSCULAR HGB CONC 33 g/dL (32.5-36.3); MEAN CORPUSCULAR VOLUME 94.2 fL (73.0-96.2); MONOCYTES # (AUTO) 0.7 K/uL (2.0-10.0); MONOCYTES % (AUTO) 6.6 % (0.0-11.0); NEUTROPHILS # (AUTO) 7.5 K/uL (1.8-8.9); NEUTROPHILS % (AUTO) 73.2 % (38.5-71.5); PLATELET COUNT (AUTO) 198 K/uL (152-348); RED BLOOD CELL COUNT(AUTO) 3.28 MIL/uL (4.06-5.63); WHITE BLOOD COUNT (AUTO) 10.3 K/uL (3.6-10.2)
[2019-08-16 05:33] LABS: CARBON DIOXIDE 27 mmol/L (21-32); CHLORIDE 105 mmol/L (98-107); CREATININE 3.2 mg/dL (0.6-1.3); GLUCOSE 267 mg/dL (74-106); MAGNESIUM 2.1 mg/dL (1.8-2.4); PHOSPHOROUS 1.9 mg/dL (2.5-4.9); POTASSIUM 3.1 mmol/L (3.5-5.1); UREA NITROGEN, BLOOD 63 mg/dL (7-18)
--- NOTE | 2019-08-16 05:53 | NUR ---
Tolerating GT feedings well. Had 3 BMs the whole shift. Contact isolation maintained.
[2019-08-16] MEDS: VANCOMYCIN FOR PO/GT/NG USE GT SCH ×4 (06:17→23:17)
[2019-08-16] MEDS: METRONIDAZOLE 500 MG/NS 100ML 500 MG in PREMIXED 1 EACH IV SCH ×3 (06:17→21:40)
[2019-08-16] MEDS: BLOOD SUGAR DIAGNOSTIC 1 EACH STRIP VI SCH ×4 (06:20→23:17)
[2019-08-16] MEDS: Z GUARD REMEDY PASTE 57 GM TUBE TOP PRN (06:20)
[2019-08-16] MEDS: INSULIN REGULAR, HUMAN 300 UNIT/3 ML VIAL SQ PRN ×4 (06:22→23:38)
--- NOTE | 2019-08-16 06:30 | NUR ---
Call placed to [facility] re: patient's BP trending higher. Dr. Martinez instructional services librarian; awaiting call back. Addendum: 08/16/19 at 0645 by LATRICE PIZARRO RN Amended: Links added.
--- NOTE | 2019-08-16 07:38 | NUR ---
A CALL BACK FROM AGNES DINH AND ORDERS TO RESUME COREG AND AMLODIPINE RECEIVED.
[2019-08-16] MEDS: FERROUS SULFATE 300 MG/5 ML LIQUID UDC GT SCH (08:55)
[2019-08-16] MEDS: CHLORHEXIDINE GLUCONATE 15 ML MOUTHWASH MM SCH ×2 (08:55→16:24)
[2019-08-16] MEDS: LEVETIRACETAM 500 MG/5 ML LIQUID UDC GT SCH ×2 (08:56→20:19)
[2019-08-16] MEDS: AMLODIPINE 5 MG TABLET GT SCH ×2 (08:56→21:02)
[2019-08-16] MEDS: FOLIC ACID/VITAMIN B COMP W-C TABLET GT SCH (08:56)
[2019-08-16] MEDS: CULTURELLE CAPSULE GT SCH ×2 (08:56→16:23)
[2019-08-16] MEDS: PANTOPRAZOLE ORAL SUSPENSION 40 MG SUSPDR.PKT GT SCH (08:56)
[2019-08-16] MEDS: ASCORBIC ACID 250 MG TABLET GT SCH (08:58)
[2019-08-16] MEDS: PROTEIN SUPPLEMENT (PROSTAT) 30 ML LIQUID GT SCH ×3 (08:58→16:24)
[2019-08-16] MEDS: Z GUARD REMEDY PASTE 57 GM TUBE TOP SCH ×2 (08:59→20:20)
[2019-08-16] MEDS: MUPIROCIN 2% OINT 22 GM TUBE NS SCH ×2 (08:59→20:28)
[2019-08-16] MEDS: CARVEDILOL 25 MG TABLET GT SCH ×2 (09:00→17:43)
[2019-08-16] MEDS: HEPARIN SODIUM,PORCINE 5,000 UNITS/ML VIAL SQ SCH ×2 (09:00→20:28)
--- NOTE | 2019-08-16 09:39 | NUR ---
Pulmonary serviced, Dr. Venegas in the unit to see and examine patient, full report given orders received and implemented.
--- NOTE | 2019-08-16 10:05 | NUR ---
Nephrology services, Dr. Tatiana Lim in the unit to see and examine pt. full report given orders to continue with care plan received.
--- NOTE | 2019-08-16 10:06 | NUR ---
Attending physician Dr. Matty Lara in the unit to see and examine patient, full report given.
--- NOTE | 2019-08-16 12:58 | NUR ---
Clinical Pharmacy Note: Vancomycin Dosing per Pharmacy Subjective: Vancomycin IV to continue on this 83 yo male on HD for PNA (HCAP) Objective: BUN 63/Scr 3.2 WBC 10.3 Temperature 98.6 Vanco pre-HD level on 08/15: 19.5 ht 165 cm wt 51 kg Assessment/Plan: Since HD has not been scheduled for today, no dose will be given. Will continue to follow HD schedule and dose per pre-HD levels on HD days per protocol. Will follow.
--- NOTE | 2019-08-16 13:30 | NUR ---
At this time pt's son Destin in the unit and requesting to have plate colorer be contacted to discuss care plan. Adult Day Care Worker called by nursing shellfish farming supervisor who was covering for breaks. As stated by mr. Weir not happy because no DrErna has spoken to him, however this morning Mr. Weir called the unit and right after Dr. Starr notified to called him. and as per Md she discussed care plan with Mr. Weir after been notified of Mr. Weir's request to speak to her this morning.
[2019-08-16] MEDS ORDERED: NEUTRA PHOS PACKET GT ONE (15:15)
[2019-08-16] MEDS ORDERED: POTASSIUM CHLORIDE 20 MEQ POWDER PACKET GT ONE (16:00)
--- NOTE | 2019-08-16 16:28 | NUR ---
Mr. Weir in the unit and at this time attending called to be notified of Mr. Weir request to speak to her as stated by him "I'm concern of my dad's feet condition and I would like him to have the SCD's on, Mr. Weir educated on scd's contraindication but insisted to speak to attending stating "this would be the only way to have them to talk to me". Attending notified awaiting call back.
--- NOTE | 2019-08-16 17:28 | NUR ---
As requested by attending Dr. Starr a call to Dr. Mejia and Dr. Bridges from vascular answer the called Dr. Bridges reminded of consult requested by attending Dr. Kita Lara on 08/12 and 08/[address] Suggs spoke with Dr. Mejia to see patient. As stated by Dr. Bridges "I'm sorry I was out of town and and my partner most have forgotten" Report given to Dr. Bridges who stated "I'll see the patient tomorrow morning". Addendum: 08/16/19 at 1732 by RYAN BECK RN Pt's son Destin informed as he remains at bedside.
[2019-08-16] MEDS: MEROPENEM 0.5 G in IV NORMAL SALINE 50 ML IV SCH (17:44)
[2019-08-16] MEDS: NEPRO 1000 ML GT PRN ×2 (18:06→23:40)
--- NOTE | 2019-08-16 18:46 | NUR ---
Love Pink in the unit to see patient.
--- NOTE | 2019-08-16 19:30 | NUR ---
Report received. Patient with trache to vent appears comfortable on current settings. Sat above 94% on 30% FIO2. Opens eyes randomly, doesn't track. On contact isolation for MRSA nares and stool C diff. With Gt feedings at 40 ml/H via GT. Tolerated will; no residual. Assessment completed. Addendum: 08/16/19 at 2217 by LATRICE PIZARRO RN Amended: Links added. Addendum: 08/16/19 at 2220 by LATRICE PIZARRO RN Amended: Links added.
--- NOTE | 2019-08-16 20:00 | NUR ---
Incontinent of semi liquid brown stools. Cleaned; skin care provided. Turned and repositioned. Addendum: 08/16/19 at 2220 by LATRICE PIZARRO RN Amended: Links added.
[2019-08-17] VITALS (27 sets, daily range): BP systolic 91–174; BP diastolic 44–80
--- NOTE | 2019-08-17 02:00 | NUR ---
BPs trending 150s systole. Medicated with Tylenol via GT for generalized discomfort.
[2019-08-17] MEDS: ACETAMINOPHEN 325 MG TABLET PO PRN ×3 (02:14→20:22)
--- NOTE | 2019-08-17 03:00 | NUR ---
Tylenol effective. Addendum: 08/17/19 at 0652 by LATRICE PIZARRO RN Amended: Links added.
[2019-08-17] MEDS: IV NORMAL SALINE 250 ML IV PRN (04:52)
[2019-08-17 05:27] LABS: CARBON DIOXIDE 25 mmol/L (21-32); CHLORIDE 105 mmol/L (98-107); GLUCOSE 235 mg/dL (74-106); POTASSIUM 3.5 mmol/L (3.5-5.1)
[2019-08-17] MEDS: VANCOMYCIN FOR PO/GT/NG USE GT SCH ×4 (05:31→23:41)
[2019-08-17] MEDS: METRONIDAZOLE 500 MG/NS 100ML 500 MG in PREMIXED 1 EACH IV SCH ×3 (05:31→21:20)
[2019-08-17 05:42] LABS: UREA NITROGEN, BLOOD 93 mg/dL (7-18)
[2019-08-17] MEDS: BLOOD SUGAR DIAGNOSTIC 1 EACH STRIP VI SCH ×4 (05:53→23:41)
[2019-08-17] MEDS: INSULIN REGULAR, HUMAN 300 UNIT/3 ML VIAL SQ PRN ×3 (05:55→23:42)
--- NOTE | 2019-08-17 06:30 | NUR ---
BPs in the 170s systole after am care and wound care treatment. Will monitor. Patient is for dialysis this am. Moving R arm up to head and face. Repositioned for comfort.
[2019-08-17] MEDS: CARVEDILOL 25 MG TABLET GT SCH ×2 (07:04→18:00)
--- NOTE | 2019-08-17 07:05 | NUR ---
BP 174/80. Coreg 25 mg due at 0800 given via GT. Tolerating feedings well.
[2019-08-17] MEDS: PROTEIN SUPPLEMENT (PROSTAT) 30 ML LIQUID GT SCH ×3 (08:00→17:01)
[2019-08-17] MEDS: AMLODIPINE 5 MG TABLET GT SCH ×2 (09:00→20:04)
[2019-08-17] MEDS: Z GUARD REMEDY PASTE 57 GM TUBE TOP SCH ×2 (09:00→20:05)
[2019-08-17] MEDS: CHLORHEXIDINE GLUCONATE 15 ML MOUTHWASH MM SCH ×2 (09:00→17:02)
[2019-08-17] MEDS: MUPIROCIN 2% OINT 22 GM TUBE NS SCH ×2 (09:00→20:06)
[2019-08-17] MEDS: FOLIC ACID/VITAMIN B COMP W-C TABLET GT SCH (09:29)
[2019-08-17] MEDS: CULTURELLE CAPSULE GT SCH ×2 (09:29→17:01)
[2019-08-17] MEDS: FERROUS SULFATE 300 MG/5 ML LIQUID UDC GT SCH (09:30)
[2019-08-17] MEDS: PANTOPRAZOLE ORAL SUSPENSION 40 MG SUSPDR.PKT GT SCH (09:30)
[2019-08-17] MEDS: LEVETIRACETAM 500 MG/5 ML LIQUID UDC GT SCH ×2 (09:32→20:04)
[2019-08-17] MEDS: ASCORBIC ACID 250 MG TABLET GT SCH (09:37)
[2019-08-17] MEDS: HEPARIN SODIUM,PORCINE 5,000 UNITS/ML VIAL SQ SCH ×2 (09:44→20:34)
[2019-08-17] MEDS: hydrALAZINE HCL 25 MG TABLET PO SCH ×2 (14:00→22:04)
--- NOTE | 2019-08-17 14:33 | NUR ---
Clinical Pharmacy Note: Vancomycin Dosing per Pharmacy Subjective: Vancomycin IV to continue on this 83 yo male on HD for PNA (HCAP) Objective: BUN 93/Scr 4.0 WBC 10.3 (08/16) Temperature 98.4 Vanco pre-HD level on 08/15: 19.5 Vanco pre-HD level today with am labs: 19.9 ht 165 cm wt 51 kg Assessment/Plan: HD has been scheduled for today, however per pre-HD level, as it is essentially 20, will not dose another vanco dose post HD today. Last dose of 500mg vanco given 08/15 @1530. Will continue to follow HD schedule for further dosing. Will follow
[2019-08-17] MEDS: MEROPENEM 0.5 G in IV NORMAL SALINE 50 ML IV SCH (18:42)
--- NOTE | 2019-08-17 19:40 | NUR ---
Pt received on continuous mechanical ventilation via Portex 7 trach. Pt is on Calvo vent with ordered settings of A/C-14, VT-500, PEEP+5, FIO2-30%. Pt tolerating vent settings well. Sxn'd small amounts of thin white secretions. No signs or symptoms of respiratory distress noted. Trach is patent and secured. Trach care done. Minimal occluding volume technique used to assess cuff inflation. HME changed. Proper isolation precaution equipment used. Bag/valve/mask and back up trach at bedside. Vent alarm parameters checked, on and audible. Vent plugged into red emergency outlet. Will continue to monitor.
--- NOTE | 2019-08-17 20:00 | NUR ---
Seen by Flavio MCCRARY. Updated of patient's condition. Contact isolation maintained. Trache to vent same settings; saturations good. Cleaned for moderate semisoft/liquid stools. PM care rendered. Grimaces during care. Good cough reflex; suctioned by RT. Addendum: 08/17/19 at 2141 by LATRICE PIZARRO RN Amended: Links added. Addendum: 08/17/19 at 2143 by LATRICE PIZARRO RN Amended: Links added.
--- NOTE | 2019-08-17 20:20 | NUR ---
BPs trending 160s. Norvasc GT given. Tylenol also given for generalized discomfort Addendum: 08/17/19 at 2144 by LATRICE PIZARRO RN Amended: Links added. Addendum: 08/17/19 at 2145 by LATRICE PIZARRO RN Amended: Links added.
--- NOTE | 2019-08-17 21:10 | NUR ---
Patient's son Destin called; updated of condition. Norvasc and Tylenol effective. Addendum: 08/17/19 at 2145 by LATRICE PIZARRO RN Amended: Links added.
[2019-08-17] MEDS: Z GUARD REMEDY PASTE 57 GM TUBE TOP PRN (23:44)
[2019-08-18] VITALS (21 sets, daily range): BP systolic 88–182; BP diastolic 31–82
--- NOTE | 2019-08-18 01:00 | NUR ---
Continues to grimace with care. SBPs 160, no EKG changes. Medicated with [place] via GT. Addendum: 08/18/19 at 0123 by LATRICE PIZARRO RN Amended: Links added.
[2019-08-18] MEDS: NEPRO 1000 ML GT PRN (01:20)
[2019-08-18] MEDS: IV NORMAL SALINE 250 ML IV PRN (04:06)
--- NOTE | 2019-08-18 04:15 | NUR ---
BPs trending higher again. Hydralazine due at 0600 given. Also medicated with Tylenol for generalized discomfort. Addendum: 08/18/19 at 0655 by LATRICE PIZARRO RN Amended: Links added. Addendum: 08/18/19 at 0657 by LATRICE PIZARRO RN Amended: Links added.
[2019-08-18] MEDS: ACETAMINOPHEN 325 MG TABLET PO PRN (04:16)
[2019-08-18] MEDS: hydrALAZINE HCL 25 MG TABLET PO SCH (04:17)
[2019-08-18 05:21] LABS: BASOPHILS % (AUTO) 0.3 % (0.0-2.0); EOSINOPHILS # (AUTO) 0.3 K/uL (0.0-0.7); EOSINOPHILS % (AUTO) 2.3 % (0.0-7.0); HEMATOCRIT 34.3 % (36.7-47.1); LYMPHOCYTES # (AUTO) 2.1 K/uL (20.0-40.0); LYMPHOCYTES % (AUTO) 17.1 % (20.5-51.5); MEAN CORPUSCULAR HEMOGLOBIN 30.1 uug (23.8-33.4); MEAN CORPUSCULAR HGB CONC 32 g/dL (32.5-36.3); MEAN CORPUSCULAR VOLUME 94.2 fL (73.0-96.2); MONOCYTES # (AUTO) 0.7 K/uL (2.0-10.0); NEUTROPHILS % (AUTO) 74.3 % (38.5-71.5); PLATELET COUNT (AUTO) 224 K/uL (152-348); RED BLOOD CELL COUNT(AUTO) 3.64 MIL/uL (4.06-5.63); WHITE BLOOD COUNT (AUTO) 12.1 K/uL (3.6-10.2)
[2019-08-18] MEDS: METRONIDAZOLE 500 MG/NS 100ML 500 MG in PREMIXED 1 EACH IV SCH ×2 (05:30→14:00)
[2019-08-18] MEDS: VANCOMYCIN FOR PO/GT/NG USE GT SCH ×2 (05:31→11:45)
[2019-08-18] MEDS: BLOOD SUGAR DIAGNOSTIC 1 EACH STRIP VI SCH ×2 (05:31→11:45)
[2019-08-18] MEDS: INSULIN REGULAR, HUMAN 300 UNIT/3 ML VIAL SQ PRN ×2 (05:34→11:46)
[2019-08-18 05:38] LABS: CARBON DIOXIDE 26 mmol/L (21-32); CHLORIDE 105 mmol/L (98-107); CREATININE 3.3 mg/dL (0.6-1.3); GLUCOSE 280 mg/dL (74-106); MAGNESIUM 2.2 mg/dL (1.8-2.4); PHOSPHOROUS 2.9 mg/dL (2.5-4.9); UREA NITROGEN, BLOOD 69 mg/dL (7-18)
--- NOTE | 2019-08-18 06:00 | NUR ---
Hydralazine effective. No neuro changes. Tolerating GT feedings well. Addendum: 08/18/19 at 0657 by LATRICE PIZARRO RN Amended: Links added.
[2019-08-18] MEDS: CARVEDILOL 25 MG TABLET GT SCH (07:54)
[2019-08-18] MEDS: PROTEIN SUPPLEMENT (PROSTAT) 30 ML LIQUID GT SCH ×2 (08:00→11:49)
--- NOTE | 2019-08-18 08:00 | NUR ---
Pulmonary services, Dr. Berger in the unit to see and examine patient, full report given, orders to continue with care plan received.
[2019-08-18] MEDS: FOLIC ACID/VITAMIN B COMP W-C TABLET GT SCH (08:01)
[2019-08-18] MEDS: LEVETIRACETAM 500 MG/5 ML LIQUID UDC GT SCH (08:01)
[2019-08-18] MEDS: AMLODIPINE 5 MG TABLET GT SCH (08:01)
[2019-08-18] MEDS: PANTOPRAZOLE ORAL SUSPENSION 40 MG SUSPDR.PKT GT SCH (08:01)
[2019-08-18] MEDS: FERROUS SULFATE 300 MG/5 ML LIQUID UDC GT SCH (08:02)
[2019-08-18] MEDS: CULTURELLE CAPSULE GT SCH (08:04)
[2019-08-18] MEDS: MUPIROCIN 2% OINT 22 GM TUBE NS SCH (08:05)
[2019-08-18] MEDS: CHLORHEXIDINE GLUCONATE 15 ML MOUTHWASH MM SCH (08:05)
[2019-08-18] MEDS: Z GUARD REMEDY PASTE 57 GM TUBE TOP SCH (08:06)
[2019-08-18] MEDS: HEPARIN SODIUM,PORCINE 5,000 UNITS/ML VIAL SQ SCH (08:10)
--- NOTE | 2019-08-18 08:24 | NUR ---
Clinical Pharmacy Note: Vancomycin Dosing per Pharmacy Subjective: Vancomycin IV to continue on this 83 yo male on HD for PNA (HCAP) Objective: BUN 69/Scr 3.3 WBC 12.1 Temperature 98.6 Vanco pre-HD level on 08/15: 19.5 Vanco pre-HD level on 08/17: 19.9 ht 165 cm wt 51 kg Assessment/Plan: NO HD has been scheduled for today per R, therefore, no dose shall be due today asp per vanco dosing protocol for HD patients.. Will continue to follow HD schedule for further dosing. Will follow
[2019-08-18] MEDS: ASCORBIC ACID 250 MG TABLET GT SCH (08:37)
--- NOTE | 2019-08-18 08:52 | NUR ---
Attending notified of sustained sbp above 160's for the last 2hrs see vitals signs flow-sheet. orders received.
[2019-08-18] MEDS ORDERED: hydrALAZINE HCL 20 MG/1 ML VIAL IV PRN (09:00)
--- NOTE | 2019-08-18 10:38 | NUR ---
Cardiology services in the unit to see and examine patient, full report given.
--- NOTE | 2019-08-18 13:45 | NUR ---
At this time pt's son and DPOA in the unit to visit his dad and as requested by him Attending Dr. Nish Lara called to speak about possible hospice vs comfort care measures as stated by pt'son.
[2019-08-18] MEDS ORDERED: hydrALAZINE HCL 25 MG TABLET PO SCH (14:00)
[2019-08-18] MEDS ORDERED: hydrALAZINE HCL 50 MG TABLET PO SCH (14:00)
--- NOTE | 2019-08-18 14:09 | NUR ---
DR. Montes meet with pt's son and DPOA MrDestin Rapp at this time and discussed care plan. Right after meeting I was informed of by physician that She will be ordering terminal extubation, and comfort measures herself. Case-management informed per protocol..
--- NOTE | 2019-08-18 14:36 | NUR ---
1400 IV meds non-administered at this time awaiting Dr's orders to dcd all medications and terminal extubation.
[2019-08-18] MEDS ORDERED: DC PROPOFOL ONCE EXTUBATED XX PRN (14:45)
[2019-08-18] MEDS: MORPHINE SULFATE 2 MG/1 ML DISP.SYRIN IV PRN ×2 (15:57→22:51)
--- NOTE | 2019-08-18 16:01 | NUR ---
With expected family members at bedside as requested by pt's son and DPOA patient terminally extubated by Kvng Barnett. morphine administered as ordered. Patient left on room air.
--- NOTE | 2019-08-18 16:50 | NUR ---
Telephone report given to Jose Hung. Nurse informed that patient will be going to [facility] room 330 on comfort measures, morphine 2mg A2H. for comfort patient left on RA. and with trache in place as requested per family. IV ML to RUE patent. and HL.
--- NOTE | 2019-08-18 17:23 | NUR ---
Patient taken up via own bed by receiving Jose Hung and charge Jose Cruz. Terminally extubated on comfort measures to room 330 family at bedside. Iv line patent. some tachypnea noted, . called for ativan orders.
--- NOTE | 2019-08-18 17:46 | NUR ---
PATIENT TERMINALLY DISCONNECTED FROM THE VENTILATOR UPON DOCTOR'S ORDER. FAMILY MEMBERS IN THE ROOM DURING THE TERMINATION.
--- NOTE | 2019-08-18 18:00 | NUR ---
RECEIVED PATIENT FROM CCU. TRANSFERRED PATIENT WITHOUT COMPLICATIONS. PATIENT PLACED ON COMFORT MEASURES. PATIENT RESPIRATIONS AT 5-6. NO ACUTE DISTRESS NOTED. FAMILY AT BEDSIDE. WILL ENDORSE TO ONCOMING NURSE.
--- NOTE | 2019-08-18 19:35 | NUR ---
Received patient in bed, family is at bedside. Patient appears comfortable, no s/s of pain or SOB. Right upper extremity midline is intact and patent. Forrest catheter is intact, no drainage noted. Patient is on comfort care only. Will continue to monitor. Addendum: 08/19/19 at 0444 by MARKUS TOWNSEND RN 2000- Patient does not have Forrest, checked diaper, no output noted.
[2019-08-18] MEDS ORDERED: LORAZEPAM 2 MG/1 ML VIAL IV PRN (21:15)
[2019-08-19] MEDS: MORPHINE SULFATE 2 MG/1 ML DISP.SYRIN IV PRN ×3 (02:15→14:11)
[2019-08-19] MEDS: LORAZEPAM 2 MG/1 ML VIAL IV PRN ×2 (04:36→17:21)
--- NOTE | 2019-08-19 04:42 | NUR ---
Son is at bedside, noted patient taking deep, shallow breaths. RR is 12-14/min. Administered PRN morphine and Ativan. Patient is still SR in the 60s on monitor. Will continue to monitor.
[2019-08-19 04:50] VITALS: BP 79/23
[2019-08-19 10:26] VITALS: BP 149/59
[2019-08-19] MEDS ORDERED: MORPHINE SULFATE PF IV DRIP 250 MG in IV DEXTROSE 5% 240 ML IV PRN ×2 (14:45→15:00)
[2019-08-19 15:30] VITALS: BP 124/50
--- NOTE | 2019-08-19 15:30 | NUR ---
RECEIVED MD ORDER MORPHINE DRIP FOR PATIENT STARTING AT 4MG INCREASE Q1H PRN BY 2MG TO MAX OF 20MG (FOR NOW)
--- NOTE | 2019-08-19 16:45 | NUR ---
PATIENT HAS S/S OF PAIN, GRIMACING, INCREASE MORPHINE TO 6MG.
--- NOTE | 2019-08-19 18:50 | NUR ---
PATIENT S/S OF PAIN INCREASE TO 8MG.
--- NOTE | 2019-08-19 20:00 | NUR ---
Patient received into care with , children, and other family members at bedside. Patient is on comfort measures only and is currently receiving IV morphine drip via HOMERO PICC line. Patient has no s/s of acute distress or discomfort noted or observed by nurse. All safety and fall precaution measures are in place. Call light and personal items are within reach at all times. Will continue to monitor and assess.
[2019-08-19 20:21] VITALS: BP 111/46
--- NOTE | 2019-08-19 21:25 | NUR ---
Morphine drip increased to 10mg/hr, r/t s/s of patient pain and per protocol.
--- NOTE | 2019-08-19 23:15 | NUR ---
Increased morphine drip to 12mg/hr per prescribed protocol
--- NOTE | 2019-08-20 01:09 | NUR ---
Increased morphine drip to 14mg/hr per prescribed protocol
--- NOTE | 2019-08-20 02:30 | NUR ---
Increased morphine drip to 16mg/hr per prescribed protocol.
--- NOTE | 2019-08-20 04:56 | NUR ---
Increased IV morphine drip to 18mg/hr per prescribed protocol.
--- NOTE | 2019-08-20 06:12 | NUR ---
Patient rested comfortably throughout night with son at bedside and the use of FLACC pain scale applied towards comfort care measures for patient. All safety and fall precaution measures remain in place. Personal items are within reach at all times.
--- NOTE | 2019-08-20 06:45 | NUR ---
Patient found with no audible heart tones or pulse palpable.
--- NOTE | 2019-08-20 10:00 | NUR ---
FAMILY AT BEDSIDE AND AWAITING MORE FAMILY MEMBERS TO SEE PT. BEFORE MORTUARY COMES TO PICK-UP. PT'S SON SUDHAKAR HERE WITH MORTUARY INFO--CALLED. 1300-- HOME HERE----TRANSPORTED TO MORTUARY.
== END 2019-08-20 13:00 | disposition expired | DRG 870 ==
LOC: ER 22:53 → CCU 08-12 00:17 → MEDSURG3 08-18 17:52
PROVIDERS: ADMIT Hospitalist; ATTEND Student in an Organized Health Care Education/Training Program
PROC: 5A1955Z Respiratory Ventilation, Greater than 96 Consecutive Hours (ICD-10-PCS; principal; 2019-08-12)
PROC: 05H933Z Insertion of Infusion Device into Right Brachial Vein, Percutaneous Approach (ICD-10-PCS; 2019-08-12)
PROC: 5A1D70Z Performance of Urinary Filtration, Intermittent, Less than 6 Hours Per Day (ICD-10-PCS; 2019-08-15)
DX: A41.9 Sepsis, unspecified organism (principal); R65.21 Severe sepsis with septic shock; N18.6 End stage renal disease; R53.2 Functional quadriplegia; I50.31 Acute diastolic (congestive) heart failure; J69.0 Pneumonitis due to inhalation of food and vomit; J15.1 Pneumonia due to Pseudomonas; E43 Unspecified severe protein-calorie malnutrition; J96.21 Acute and chronic respiratory failure with hypoxia; G92 Toxic encephalopathy; E11.52 Type 2 diabetes mellitus with diabetic peripheral angiopathy with gangrene; Z99.11 Dependence on respirator [ventilator] status; L97.429 Non-pressure chronic ulcer of left heel and midfoot with unspecified severity; I70.262 Atherosclerosis of native arteries of extremities with gangrene, left leg; I13.2 Hypertensive heart and chronic kidney disease with heart failure and with stage 5 chronic kidney disease, or end stage renal disease; A04.72 Enterocolitis due to Clostridium difficile, not specified as recurrent; D68.59 Other primary thrombophilia; E87.2 Acidosis; L97.428 Non-pressure chronic ulcer of left heel and midfoot with other specified severity; Z51.5 Encounter for palliative care; Z66 Do not resuscitate; Z93.0 Tracheostomy status; Z22.322 Carrier or suspected carrier of Methicillin resistant Staphylococcus aureus; Z74.09 Other reduced mobility; E11.22 Type 2 diabetes mellitus with diabetic chronic kidney disease; E87.6 Hypokalemia; D69.59 Other secondary thrombocytopenia; Z86.03 Personal history of neoplasm of uncertain behavior; D64.9 Anemia, unspecified; I35.8 Other nonrheumatic aortic valve disorders; G40.909 Epilepsy, unspecified, not intractable, without status epilepticus; F03.90 Unspecified dementia, unspecified severity, without behavioral disturbance, psychotic disturbance, mood disturbance, and anxiety; I70.0 Atherosclerosis of aorta; Z86.73 Personal history of transient ischemic attack (TIA), and cerebral infarction without residual deficits; Z99.2 Dependence on renal dialysis; L90.5 Scar conditions and fibrosis of skin; L98.8 Other specified disorders of the skin and subcutaneous tissue; Z93.1 Gastrostomy status
CPT/HCPCS: 36415; 36600; 70030-TC; 71045; 83605; 83735; 84100; 85025; 85730; 86706; 87040; 87070; 87077; 87340; 90937; 93005; 93307; 94002; 94003; A4217; A4663; C9113; G0378; J1644; J1815; J2060; J2185; J2270; J2274; J2405; J2543; J3370; J3480; J3490; J7040; J7050; J7060